=== PATIENT | female | born 1945 | race Caucasian/White ===

== ENCOUNTER 2020-11-11 14:39 | Emergency (ER) | payer MEDICARE, OTHER ==
--- NOTE | 2020-11-11 14:48 | ERPHSYRPT ---
- History of Present Illness Time Seen by Provider: 11/11/20 14:48 Source: patient, family Exam Limitations: no limitations Physician History: This is a 75-year-old white female who has significant scoliosis of her back and she presents with lower lumbar back pain that is been present for several days after a fall a week ago. She is also had intermittent dizziness since her fall but she does not recall ever hitting her head. She has Vern rods in her spine from past surgery. She is only been taking 2 Aleve in the morning for pain control and then to Tylenol at night. This regimen is not helping. She has not seen her pain specialist in over a year secondary to Covid 19 pandemic. She states she has not really needed to prior to her fall. She denies shortness of breath. She denies chest pain. She has no abdominal pain. She is supposed to be using a walker when she ambulates. However she does not always do so. Occurred: last week Reason for Fall: lost balance Injuries/Pain Location: neck, lower (Back) Loss of Consciousness: no loss of consciousness Quality: aching, sharpness Severity of Pain-Max: moderate Severity of Pain-Current: moderate Modifying Factors: Improves With: movement Associated Symptoms (Fall): back pain, dizziness, neck pain, trouble walking Allergies/Adverse Reactions: alprazolam [From Xanax] Allergy (Mild, Verified 11/25/11 11:14) rash and hives erythromycin base [Erythromycin Base] Allergy (Mild, Verified 11/25/11 11:14) rash and hives nortriptyline HCl [From Pamelor] Allergy (Mild, Verified 12/30/11 14:09) Penicillins Allergy (Unverified 03/02/13 11:36) Home Medications: Calcium Carb/Vitamin D 500 mg* [Calcium 500MG W/Vit D Tablet] 1 tab PO DAILY 11/11/20 [History] Cholecalciferol (Vitamin D3) [Vitamin D3] 2,000 unit PO DAILY 11/11/20 [History] Diclofenac Sodium Gel [Voltaren GEL] 1 each TOP DAILY 11/11/20 [History] Naproxen Sodium 220 mg [Aleve 220 MG] 220 mg PO DAILY 11/11/20 [History] Raloxifene HCl [Evista] 60 mg PO DAILY 11/11/20 [History] Valsartan 320 mg PO DAILY 11/11/20 [History] Venlafaxine HCl [Effexor Xr] 150 mg PO DAILY 11/11/20 [History] Hx Tetanus, Diphtheria Vaccination/Date Given: (unknown) Hx Influenza Vaccination/Date Given: Yes (2011) Hx Pneumococcal Vaccination/Date Given: Yes (2006) Travel Risk - International Travel Have you traveled outside of the country in past 3 weeks: No - Coronavirus Screening Are you exhibiting any of the following symptoms?: No Close contact with a COVID-19 positive Pt in past 14-21 Days: No - Review of Systems Constitutional: No Symptoms Eyes: No Symptoms Ears, Nose, & Throat: No Symptoms Respiratory: No Symptoms Cardiac: No Symptoms Abdominal/Gastrointestinal: No Symptoms Genitourinary Symptoms: No Symptoms Musculoskeletal: Back Pain (Lower lumbar region), Fall Skin: No Symptoms Neurological: Dizziness Psychological: No Symptoms Endocrine: No Symptoms Hematologic/Lymphatic: No Symptoms Immunological/Allergic: No Symptoms All Other Systems: Reviewed and Negative - Past Medical History Pertinent Past Medical History: Yes Neurological History: Migraines ENT History: Cataracts Cardiac History: Hypertension Respiratory History: Asthma, Bronchitis, COPD, Pneumonia Musculoskeletal History: Arthritis, Osteoarthritis, Other GI Medical History: Colitis, GERD History: Other Psycho-Social History: Depression Female Reproductive Disorders: No Pertinent History Other Medical History: SCOLIOSIS Had Bronchiti - Past Surgical History Past Surgical History: Yes Neuro Surgical History: No Pertinent History Cardiac: No Pertinent History Respiratory: No Pertinent History Gastrointestinal: Appendectomy Genitourinary: No Pertinent History Musculoskeletal: Joint Replacement, Orthopedic Surgery Female Surgical History: Hysterectomy Other Surgical History: LEFT HIP REPLACEMENT AND REVISION, NECK FUSION, BACK SURGERY X2, HYSTERECTOMY, TONSILLECTOMY, appendectomy - Social History Smoking Status: Never smoker Exposure to second hand smoke: No Drug Use: none - Nursing Vital Signs Nursing Vital Signs: Initial Vital Signs Temperature 97.7 F 11/11/20 14:45 Pulse Rate 93 H 11/11/20 14:45 Respiratory Rate 20 11/11/20 14:45 Blood Pressure 147/73 11/11/20 14:45 O2 Sat by Pulse Oximetry 100 11/11/20 14:45 Pain Scale Pain Intensity 4 - Coulters Coma Score Best Eye Response (Coulters): (4) open spontaneously Best Verbal Response (Anisa): (5) oriented Best Motor Response (Anisa): (6) obeys commands Anisa Total: 15 - Physical Exam General Appearance: no apparent distress, alert, anxiety Head Injury: no evidence of injury Eye Exam: PERRL/EOMI, eyes nml inspection ENT Exam: airway nml, nml ext.inspection Neck Exam: supple, trachea midline, full range of motion, normal alignment, normal inspection Respiratory/Chest Exam: normal breath sounds, No chest tenderness, No respiratory distress, No ecchymosis Gastrointestinal Exam: No tenderness Rectal Exam: not done Back Exam: vertebral tenderness (Lower back), decreased range of motion, muscle spasm, other (Patient has significant scoliosis) Extremity Exam: normal inspection, normal range of motion, capillary refill <3 sec, pelvis stable Neurologic Exam: alert, oriented x 3, cooperative, collar tacker II-XII nml as tested, normal mood/affect, sensation nml Skin Exam: normal color, warm, dry SpO2 Interpretation: normal O2 Delivery: Room Air - Course Nursing assessment & vital signs reviewed: Yes EKG Interpreted by Me: RATE (93), Sinus Rhythm, NORMAL AXIS, NORMAL INTERVALS, NORMAL QRS, Other (No acute ischemic changes on today's EKG. No comparison EKG available) Ordered Tests: Active Orders 24 hr Category Date Time Status CERVICAL SPINE WO CONTRAST [CT] Stat Exams 11/11/20 15:26 Taken HEAD WITHOUT CONTRAST [CT] Stat Exams 11/11/20 15:26 Taken LUMBAR SPINE W/O [CT] Stat Exams 11/11/20 15:26 Taken Medication Summary Discontinued Medications Generic Name Dose Route Start Last Admin Trade Name Freq PRN Reason Stop Dose Admin Hydromorphone HCl 0.5 mg 11/11/20 15:28 11/11/20 16:04 Hydromorphone 1 Mg/Ml Injection IM 11/11/20 15:29 0.5 mg STAT ONE Administration Hydromorphone HCl Confirm 11/11/20 15:49 Hydromorphone 1 Mg/Ml Injection Administered 11/11/20 15:50 Dose 1 mg .ROUTE .STK-MED ONE Meclizine HCl 25 mg 11/11/20 16:24 11/11/20 16:58 Antivert 25 Mg PO 11/11/20 16:25 25 mg STAT ONE Administration Meclizine HCl Confirm 11/11/20 16:57 Antivert 25 Mg Administered 11/11/20 16:58 Dose 25 mg .ROUTE .STK-MED ONE Methylprednisolone Sodium Succinate 125 mg 11/11/20 15:30 11/11/20 16:03 Solu-Medrol 125 Mg IM 11/11/20 15:31 125 mg STAT ONE Administration Methylprednisolone Sodium Succinate Confirm 11/11/20 15:50 Solu-Medrol 125 Mg Administered 11/11/20 15:51 Dose 125 mg .ROUTE .STK-MED ONE Ondansetron HCl 4 mg 11/11/20 15:30 11/11/20 16:07 Zofran Odt 4 Mg PO 11/11/20 15:31 4 mg STAT ONE Administration Ondansetron HCl Confirm 11/11/20 15:49 Zofran Odt 4 Mg Administered 11/11/20 15:50 Dose 4 mg .ROUTE .STK-MED ONE Orphenadrine Citrate 60 mg 11/11/20 15:30 11/11/20 16:00 Norflex 60 Mg/2 Ml IM 11/11/20 15:31 60 mg STAT ONE Administration Orphenadrine Citrate Confirm 11/11/20 15:49 Norflex 60 Mg/2 Ml Administered 11/11/20 15:50 Dose 60 mg .ROUTE .STK-MED ONE - Progress Progress: improved, pain not gone completely, re-examined Progress Note: 11/11/20 17:45 CAT scan of the lumbar spine without contrast shows no evidence of acute fracture within the limits of the study. There is multilevel level scoliosis and degenerative changes. There is a lytic lesion in the right iliac bone. These findings were discussed with the patient. She was told to follow-up with her primary care physician for further management. CAT scan of the cervical spine without contrast shows no cervical fracture. There is scoliosis and postoperative change as well as degenerative changes present. CAT scan of the head without contrast shows no acute intracranial abnormality. Counseled pt/family regarding: diagnosis, need for follow-up, rad results - Departure Departure Disposition: Home Clinical Impression: Fall with injury, Back pain, Dizziness Condition: Stable Critical Care Time: No Referrals: MARGARITO DILLON [ACTIVE STAFF] - Additional Instructions: Take medications as prescribed. Follow-up with your primary care physician for further management of your pain and the dizziness that is newly present. Prescriptions: Oxycodone HCl/Acetaminophen [Percocet 5-325 mg Tablet] 1 each PO Q8H PRN PRN #9 tablet MDD 3 PRN Reason: Pain Meclizine HCl 25 mg [Antivert 25 mg] 25 mg PO Q8H PRN #9 tablet MDD 3 PRN Reason: Dizziness Prednisone 10 mg [Deltasone 10 mg] 10 mg PO TID #12 tablet
[2020-11-11] MEDS ORDERED: Hydromorphone 1 mg/ml Injection IM ONE (15:28)
[2020-11-11] MEDS ORDERED: solu-MEDROL 125 MG IM ONE (15:30)
[2020-11-11] MEDS ORDERED: ZOFRAN ODT 4 MG PO ONE (15:30)
[2020-11-11] MEDS ORDERED: Norflex 60 MG/2 ML IM ONE (15:30)
[2020-11-11] MEDS ORDERED: Hydromorphone 1 mg/ml Injection ONE (15:49)
[2020-11-11] MEDS ORDERED: Norflex 60 MG/2 ML ONE (15:49)
[2020-11-11] MEDS ORDERED: ZOFRAN ODT 4 MG ONE (15:49)
[2020-11-11] MEDS ORDERED: solu-MEDROL 125 MG ONE (15:50)
[2020-11-11] MEDS ORDERED: ANTIVERT 25 MG PO ONE (16:24)
[2020-11-11] MEDS ORDERED: ANTIVERT 25 MG ONE (16:57)
[2020-11-11 17:58] VITALS: O2SAT 99
[2020-11-11 18:25] VITALS: BP 146/55; PULSE 99
--- NOTE | 2020-11-11 19:33 | XRAY ---
Indication: Pain following fall. Multiple contiguous axial images obtained through the head without contrast. Comparison: June 16, 2019. Study slightly degraded by motion artifact. There is again age-appropriate global atrophy. No acute intracranial hemorrhage, abnormal extra-axial fluid collection, or mass effect. Fourth ventricle is midline without hydrocephalus. [place]-white matter differentiation preserved. Bony calvarium intact. Visualized paranasal sinuses and mastoid air cells are clear. Impression: Motion artifact. No gross new or acute intracranial abnormalities. Comment: Preliminary interpretation was made by [facility]. No critical discrepancy.
--- NOTE | 2020-11-11 19:37 | XRAY ---
Indication: Pain following fall. Multiple contiguous axial images obtained through the cervical spine. Sagittal and coronal reformatted images obtained. Comparison: None. A few images are slightly degraded by motion artifact. Patient is also markedly side bent/rotated. Osseous structures demineralized consistent with patient's age. Axial images negative for acute fracture, suspicious bony lesions, or spinal canal stenosis. Previous C5-C6 anterior fusion surgery with intact plate/screws. Mild/moderate multilevel degenerative endplate spurring and moderate multilevel bilateral degenerative facet hypertrophy. Sagittal and coronal reformatted images demonstrate normal cervical lordosis with moderate levorotoscoliosis centered at T1. Visualized noncontrasted soft tissues demonstrates mild bilateral carotid calcifications and moderate biapical parenchymal fibrosis/scarring. Impression: 1. Motion artifact and suboptimal positioning. 2. No gross acute fracture/subluxation. 3. Incidental osteopenia, multilevel degenerative spondylosis, C5-C6 anterior fusion, levorotoscoliosis and biapical pulmonary fibrosis/scarring. Comment: Preliminary interpretation was made by [facility]. No critical discrepancy.
--- NOTE | 2020-11-11 19:41 | XRAY ---
Indication: Pain following fall. Multiple contiguous axial images obtained through the lumbar spine. Sagittal and coronal reformatted images obtained. Comparison: None. Study markedly limited by extreme beam artifact from incompletely visualized thoracolumbar posterior spinal hardware terminating L4. Osseous structures demineralized consistent with patient's age. Axial images grossly negative for acute fracture, suspicious bony lesions, or spinal canal stenosis. Mild/moderate multilevel degenerative endplate spurring and moderate multilevel bilateral degenerative facet hypertrophy. Sagittal and coronal reformatted images demonstrate moderate levorotoscoliosis centered at L3. No gross acute compression fracture or subluxation. Visualized noncontrasted soft tissues demonstrates scattered colonic diverticulosis scarring PA rectal kidney demonstrates at least 2 exophytic cysts, largest 2.8 cm superiorly. Impression: 1. Limited exam due to beam artifact from posterior spinal fusion hardware. 2. No gross acute fracture/subluxation. 3. Incidental osteopenia, multilevel degenerative spondylosis, right renal cysts, and colonic diverticulosis. Comment: Preliminary interpretation was made by [facility]. No critical discrepancy.
== END 2020-11-11 18:24 | disposition home or self-care (01) ==
LOC: ED 14:39
DX: M54.5 Low back pain (principal); R42 Dizziness and giddiness; W19.XXXA Unspecified fall, initial encounter; Y93.9 Activity, unspecified; Y92.9 Unspecified place or not applicable; I10 Essential (primary) hypertension; Z79.899 Other long term (current) drug therapy; M41.9 Scoliosis, unspecified; J44.9 Chronic obstructive pulmonary disease, unspecified; K21.9 Gastro-esophageal reflux disease without esophagitis; M19.90 Unspecified osteoarthritis, unspecified site
CPT/HCPCS: 70450; 72125; 72131; 96372; 99284; J1170; J2360; J2930; Q0162; A9270-GY